=== PATIENT | female | born 1995 | race Caucasian/White ===

== ENCOUNTER 2016-06-17 20:55 | Emergency (ER) | payer MEDICAID ==
[~2016-06-17] VITALS: Ht 165.1 cm; Wt 75.0 kg
[2016-06-17 21:20] LABS: APPEARANCE,URINE CLOUDY (CLEAR); GLUCOSE, URINE (UA) NEGATIVE (NEGATIVE); KETONES,URINE NEGATIVE (NEGATIVE); LEUKOCYTE ESTERASE ,URINE NEGATIVE (NEGATIVE); OCCULT BLOOD,URINE MODERATE (NEGATIVE); PH,URINE 5.5 (5.0-8.0); PROTEIN,URINE NEGATIVE (NEGATIVE)
[2016-06-17 21:23] LABS: SQUAMOUS EPITHELIAL CELL,UR Moderate /LPF (None Seen); WBC,URINE 0-2 /HPF (0-5)
[2016-06-17] MEDS ORDERED: OxyCODONE HCL/ACETAMINOPHEN 5-325 MG TABLET PO ONE (21:45)
[2016-06-17 22:14] VITALS: BP 121/64
== END 2016-06-17 22:26 | disposition home or self-care (01) ==
LOC: EMS 20:56
DX: B37.3 Candidiasis of vulva and vagina (principal)
CPT/HCPCS: 99284

== ENCOUNTER 2016-07-24 18:01 | Emergency (ER) | payer MEDICAID ==
[~2016-07-24] VITALS: Ht 167.6 cm; Wt 73.2 kg
[2016-07-24] MEDS ORDERED: ACETAMINOPHEN 500 MG TABLET PO ONE (21:15)
[2016-07-24] MEDS ORDERED: IBUPROFEN 800 MG TABLET PO ONE (21:15)
[2016-07-24 21:25] VITALS: BP 118/66
== END 2016-07-24 21:27 | disposition home or self-care (01) ==
LOC: EMS 18:02
DX: R07.89 Other chest pain (principal); N64.4 Mastodynia
CPT/HCPCS: 99283